=== PATIENT | female | born 1955 | race Caucasian/White ===

== ENCOUNTER 2023-10-01 11:12 | Outpatient (CLI) | payer MEDICARE | END 2023-10-01 11:13 | disposition home or self-care (01) | LOC: CSHMAMMO 11:12 | PROVIDERS: ATTEND Family Medicine | DX: Z12.31 Encounter for screening mammogram for malignant neoplasm of breast (principal); Z80.3 Family history of malignant neoplasm of breast; Z85.828 Personal history of other malignant neoplasm of skin | CPT/HCPCS: 77063; 77067 ==